=== PATIENT | female | born 1940 | race Caucasian/White ===

== ENCOUNTER 2016-04-02 08:41 | Outpatient (CLI) | payer OTHER ==
[2016-04-02] MEDS ORDERED: PROLIA SUBCUT STA (08:53)
== END 2016-04-02 08:42 | disposition home or self-care (01) ==
LOC: OPMED 08:41
PROVIDERS: ATTEND Family Medicine
DX: M81.0 Age-related osteoporosis without current pathological fracture (principal); Z78.0 Asymptomatic menopausal state
CPT/HCPCS: 96372

== ENCOUNTER 2016-09-30 09:41 | Outpatient (CLI) | payer OTHER ==
[2016-09-30] MEDS ORDERED: PROLIA SUBCUT STA (09:59)
[2016-09-30 10:20] VITALS: BP 141/81
== END 2016-09-30 09:42 | disposition home or self-care (01) ==
LOC: OPMED 09:41
PROVIDERS: ATTEND Family Medicine
DX: M81.0 Age-related osteoporosis without current pathological fracture (principal)
CPT/HCPCS: 96372

== ENCOUNTER 2017-04-02 09:37 | Outpatient (CLI) ==
[2017-04-02 10:01] VITALS: BP 183/82; TEMP 97.3
[2017-04-02] MEDS ORDERED: PROLIA SUBCUT STA (10:01)
== END 2017-04-02 09:38 | disposition home or self-care (01) ==
LOC: OPMED 09:37
PROVIDERS: ATTEND Family Medicine
DX: M81.0 Age-related osteoporosis without current pathological fracture (principal)
CPT/HCPCS: 96372

== ENCOUNTER 2017-10-01 09:24 | Outpatient (CLI) ==
[2017-10-01 09:55] VITALS: BP 149/74; TEMP 96.8
[2017-10-01] MEDS ORDERED: PROLIA SUBCUT STA (09:56)
== END 2017-10-01 09:25 | disposition home or self-care (01) ==
LOC: OPMED 09:24
PROVIDERS: ATTEND Family Medicine
DX: M81.0 Age-related osteoporosis without current pathological fracture (principal)
CPT/HCPCS: 96372

== ENCOUNTER 2018-04-05 09:39 | Outpatient (CLI) ==
[2018-04-05 10:05] VITALS: BP 135/74; TEMP 97.4
[2018-04-05] MEDS ORDERED: PROLIA SUBCUT STA (10:07)
== END 2018-04-05 09:40 | disposition home or self-care (01) ==
LOC: OPMED 09:39
PROVIDERS: ATTEND Family Medicine
DX: M81.0 Age-related osteoporosis without current pathological fracture (principal)
CPT/HCPCS: 96372

== ENCOUNTER 2018-10-07 10:01 | Outpatient (CLI) | payer OTHER ==
[2018-10-07 10:15] VITALS: BP 139/83; TEMP 97
[2018-10-07] MEDS: PROLIA SUBCUT STA (10:25)
== END 2018-10-07 10:02 | disposition home or self-care (01) ==
LOC: OPMED 10:01
PROVIDERS: ATTEND Family Medicine
DX: M81.0 Age-related osteoporosis without current pathological fracture (principal)
CPT/HCPCS: 96372